=== PATIENT | male | born 1985 | race Caucasian/White ===

== ENCOUNTER 2017-08-04 20:55 | Emergency (ER) | payer BC ==
[2017-08-04] MEDS ORDERED: Triple Antibiotic Oint 1 GM Packet ONE (22:10)
[2017-08-04] MEDS ORDERED: Adacel (T-DAP) 0.5 ML VIAL ONE (22:13)
[2017-08-04] MEDS ORDERED: Cephalexin 500 MG CAP ONE (22:13)
[2017-08-04] MEDS ORDERED: Naproxen 500 MG TAB ONE (22:28)
== END 2017-08-04 22:36 | disposition home or self-care (01) ==
LOC: MADERS 20:55
DX: S61.213A Laceration without foreign body of left middle finger without damage to nail, initial encounter (principal); S61.217A Laceration without foreign body of left little finger without damage to nail, initial encounter; F17.210 Nicotine dependence, cigarettes, uncomplicated; F20.9 Schizophrenia, unspecified; Z79.899 Other long term (current) drug therapy; W29.3XXA Contact with powered garden and outdoor hand tools and machinery, initial encounter
CPT/HCPCS: 90471; 90715

== ENCOUNTER 2019-10-17 15:13 | Emergency (ER) | payer BC, OTHER ==
[2019-10-18 11:05] LABS: SARS-CoV-2 MS2 Positive; SARS-CoV-2 N Gene Negative; SARS-CoV-2 S Gene Negative; SARS-CoV-2 orf1ab Negative
== END 2019-10-17 16:14 | disposition home or self-care (01) ==
LOC: MADERS 15:13
DX: Z20.828 Contact with and (suspected) exposure to other viral communicable diseases (principal); F20.9 Schizophrenia, unspecified; F90.9 Attention-deficit hyperactivity disorder, unspecified type; F17.210 Nicotine dependence, cigarettes, uncomplicated; Z79.899 Other long term (current) drug therapy
CPT/HCPCS: 87635; 99281; U0003